=== PATIENT | male | born 1990 | race Caucasian/White ===

== ENCOUNTER 2018-06-09 11:52 | Emergency (ER) | payer MEDICAID ==
[~2018-06-09] VITALS: Ht 180.3 cm; Wt 128.0 kg
[~2018-06-09 11:52] MED LIST: ALBU6.7H INH; BENZ1LOZ61 PO; CLIN150C8 PO; GUAI120015 PO; IBUP-1986 PO; LIDO20SO PO
[2018-06-09 11:58] VITALS: BP 129/80
[2018-06-09] MEDS ORDERED: dexamethasone sod phosphate 10mg/ml inj PO STA (12:15)
== END 2018-06-09 13:22 | disposition home or self-care (01) ==
LOC: ER 11:52
DX: J02.8 Acute pharyngitis due to other specified organisms (principal); B97.89 Other viral agents as the cause of diseases classified elsewhere; J45.909 Unspecified asthma, uncomplicated; K21.9 Gastro-esophageal reflux disease without esophagitis; F12.90 Cannabis use, unspecified, uncomplicated; F15.90 Other stimulant use, unspecified, uncomplicated; Z88.0 Allergy status to penicillin; Z79.899 Other long term (current) drug therapy
CPT/HCPCS: 87077; 87081; 87880; 99283; J1100